=== PATIENT | male | born 1985 | race Caucasian/White ===

== ENCOUNTER 2019-08-15 21:59 | Emergency (ER) | payer OTHER ==
[~2019-08-15] VITALS: Ht 185.4 cm; Wt 72.0 kg
[~2019-08-15 21:59] MED LIST: CLIN150C2 PO; HYDR-4384 PO
[2019-08-15 22:04] VITALS: BP 117/70
== END 2019-08-15 23:18 | disposition left against medical advice (07) ==
LOC: ER 21:59
DX: Z53.21 Procedure and treatment not carried out due to patient leaving prior to being seen by health care provider (principal)

== ENCOUNTER 2022-05-27 17:20 | Emergency (ER) | payer MEDICAID, OTHER ==
[~2022-05-27] VITALS: Ht 185.4 cm; Wt 72.7 kg
[2022-05-27 17:26] VITALS: BP 137/93
[2022-05-27] MEDS ORDERED: PENI500T2 PO (18:38)
[2022-05-27] MEDS ORDERED: penicillin V potassium 500mg tablet PO ONE (18:40)
== END 2022-05-27 18:50 | disposition home or self-care (01) ==
LOC: ER 17:20
DX: K04.7 Periapical abscess without sinus (principal)
CPT/HCPCS: 99283

== ENCOUNTER 2023-06-06 16:24 | Emergency (ER) | payer MEDICAID ==
[~2023-06-06] VITALS: Ht 185.4 cm; Wt 75.0 kg
[2023-06-06 16:35] VITALS: BP 154/91; PULSE 106; RESP 18; TEMP 97; O2SAT 98
[2023-06-06] MEDS ORDERED: TETRACAINE 0.5% 4 ML OPHTHALMIC DROPS LEFTEYE ONE (18:15)
[2023-06-06] MEDS ORDERED: NEO/5DRO7 RIGHTEYE (19:15)
== END 2023-06-06 19:31 | disposition home or self-care (01) ==
LOC: ER 16:25
DX: T15.01XA Foreign body in cornea, right eye, initial encounter (principal); X58.XXXA Exposure to other specified factors, initial encounter; Y93.89 Activity, other specified; Y92.89 Other specified places as the place of occurrence of the external cause; Y99.8 Other external cause status
CPT/HCPCS: 65220; 99284